=== PATIENT | female | born 1995 | race Caucasian/White ===

== ENCOUNTER 2017-09-28 07:14 | Emergency (ER) | payer OTHER ==
[2017-09-28] MEDS: ACETAMINOPHEN 325 MG TAB PO (08:11)
== END 2017-09-28 08:19 | disposition home or self-care (01) ==
LOC: FTE 07:14
DX: R51 Headache (principal)
CPT/HCPCS: 99283; Z7502

== ENCOUNTER 2017-10-30 04:10 | Emergency (ER) | payer OTHER | END 2017-10-30 08:43 | disposition home or self-care (01) | LOC: FTE 04:10 | DX: H92.03 Otalgia, bilateral (principal); H61.23 Impacted cerumen, bilateral | CPT/HCPCS: 69209; 99283-25 ==

== ENCOUNTER 2018-10-29 14:08 | Emergency (ER) | payer OTHER | END 2018-10-29 15:03 | disposition home or self-care (01) | LOC: FTE 14:08 | DX: J02.9 Acute pharyngitis, unspecified (principal) | CPT/HCPCS: 99282; Z7502 ==

== ENCOUNTER 2018-11-05 22:32 | Emergency (ER) | payer OTHER | END 2018-11-06 01:39 | disposition home or self-care (01) | LOC: FTE 22:32 | DX: R05 Cough (principal); R06.02 Shortness of breath | CPT/HCPCS: 93005; 99283-25 ==